=== PATIENT | female | born 1965 ===

== ENCOUNTER 2016-10-27 11:32 | Day surgery (SDC) | payer OTHER ==
--- NOTE | ~2016-10-27 | EGD ---
EGD REPORT [facility] [address] [place] [place] [address] NAME: HAILEY KRUEGER : 61 STATUS : REG [facility]#: [id number] AGE: 51 ADM/REG DATE : 10/27/16 MR#: [id number] REPORT SERV DATE: 10/27/16 DICTATED BY: FAITH BHAT DATE: 10/27/16 REPORT STATUS : Draft TRANSCRIBED BY: [employer] DATE: 10/27/16 [facility] Patient Name: Hailey Krueger Date of : 1965 Attending MD: FAITH BHAT MD Procedure Date No Time: 10/27/2016 Procedure: Upper GI endoscopy Indications: Epigastric abdominal pain, Dysphagia, Heartburn, Nausea Referring MD: Kaushal Krueger MD Medicines: Monitored Anesthesia Care Complications: No immediate complications. Procedure: Pre-Anesthesia Assessment: - ASA Grade Assessment: II - A patient with mild systemic disease. After obtaining informed consent, the endoscope was passed under direct vision. Throughout the procedure, the patient's blood pressure, pulse, and oxygen saturations were monitored continuously. The GIF [id number] was introduced through the mouth, and advanced to the second part of duodenum. The upper GI endoscopy was accomplished without difficulty. The patient tolerated the procedure well. Findings: The lower third of the esophagus was normal. Biopsies were taken with a cold forceps for histology. No endoscopic abnormality was evident in the esophagus to explain the patient's complaint of dysphagia. A medium amount of food (residue) was found in the gastric body. Patchy moderate inflammation characterized by erythema and linear erosions was found in the gastric antrum. Biopsies were taken with a cold forceps for histology. The cardia and gastric fundus were normal on retroflexion. The duodenal bulb and 2nd part of the duodenum were normal. Biopsies were taken with a cold forceps for histology. Impression: - Normal lower third of esophagus. Biopsied. - No endoscopic esophageal abnormality to explain patient's dysphagia. - A medium amount of food (residue) in the stomach. - Gastritis. Biopsied. - Normal duodenal bulb and 2nd part of the duodenum. Biopsied. Recommendation: - Follow an antireflux regimen. EGD REPORT [address] [address] NAME: HAILEY KRUEGER : 61 STATUS : REG [facility] PAT#: [id number] AGE: 51 ADM/REG DATE : 10/27/16 MR#: [id number] REPORT SERV DATE: 10/27/16 DICTATED BY: FAITH BHAT DATE: 10/27/16 REPORT STATUS : Draft TRANSCRIBED BY: [employer] DATE: 10/27/16 - Use Prilosec (omeprazole) 40 mg PO daily. - Continue present medications. - Patient has a contact number available for emergencies. The signs and symptoms of potential delayed complications were discussed with the patient. Return to normal activities tomorrow. Written discharge instructions were provided to the patient. - Low residue diet. - Do a gastric emptying study. - Perform a RUQ ultrasound. - Check amylase, lipase, liver enzymes (AST, ALT, alkaline phosphatase, bilirubin), hemogram with white blood cell count and platelets and electrolyte panel today. Procedure Code(s): --- Professional --- 69753, Esophagogastroduodenoscopy, flexible, transoral; with biopsy, single or multiple Diagnosis Code(s): --- Professional --- R13.10, Dysphagia, unspecified K29.70, Gastritis, unspecified, without bleeding R10.13, Epigastric pain R12, Heartburn R11.0, Nausea CPT copyright 2013 [employer]. All rights reserved. The codes documented in this report are preliminary and upon youth teacher review may be revised to meet current compliance requirements. FAITH BHAT MD 10/27/2016 1:49 PM This report has been signed electronically. Number of Addenda: 0 Note Initiated On: 10/27/2016 1:03 PM Scope Withdrawal Time 0 hours 0 minutes 0 seconds [id number] [place] [id number]
[2016-10-27 14:28] LABS: BASOPHILS 0.1 %; BASOPHILS ABSOLUTE 0.01 10/3/uL (0.0-0.16); EOSINOPHILS 1.3 %; HEMATOCRIT 38.2 % (36.0-48.0); IMMATURE GRANULOCYTES 0.1 %; IMMATURE GRANULOCYTES ABSOLUTE 0.01 10/3/uL (0.0-0.11); LYMPHOCYTES ABSOLUTE 0.71 10/3/uL (0.67-4.30); MANUAL DIFF NO %; MEAN CORPUSCULAR HEMOGLOB 31.6 pg (26.0-34.0); MEAN CORPUSCULAR VOLUME 92.7 fL (80-100); MEAN PLATELET VOLUME 8.9 fL (9.2-13.0); MONOCYTES 1.5 %; MONOCYTES ABSOLUTE 0.12 10/3/uL (0.21-1.20); NEUTROPHILS ABSOLUTE 6.96 10/3/uL (2.02-8.40); PLATELET COUNT 214 10/3/uL (150-400); RBC DISTRIBUTION WIDTH 12.9 % (12.0-16.0); RED CELL COUNT 4.12 10/6/uL (4.0-5.6); WHITE BLOOD CELLS 7.9 10/3/uL (4.5-10.5)
[2016-10-27 14:46] LABS: ALBUMIN 3.5 G/DL (3.5-5.0); ALKALINE PHOSPHATASE 46 U/L (45-117); BUN (BLOOD UREA NITROGEN) 14 MG/DL (6-23); CALCIUM, SERUM 8.2 MG/DL (8.5-10.4); CHLORIDE, SERUM 108 MMOL/L (96-112); CO2 (CARBON DIOXIDE) 29 MMOL/L (24-34); CREATININE 0.72 MG/DL (0.55-1.02); DIRECT BILIRUBIN 0.1 MG/DL (0.0-0.4); GFR AFRICAN AMERICAN 111 ML/MIN (>=60); GFR NON AFRICAN AMERICAN 96 ML/MIN (>=60); GLUCOSE, SERUM 89 MG/DL (60-99); INDIRECT BILIRUBIN(NOT ORDER) 0.7 MG/DL (0.1-0.9); POTASSIUM, SERUM 4.3 MMOL/L (3.5-5.3); SGOT(AST) 16 U/L (5-40); SGPT(ALT) 21 U/L (5-65); SODIUM, SERUM 143 MMOL/L (135-148); TOTAL BILIRUBIN 0.8 MG/DL (0-1.2); TOTAL PROTEIN 6.4 G/DL (6.0-8.5)
== END 2016-10-27 23:59 | disposition home or self-care (01) ==
LOC: DMU 11:32
PROVIDERS: Internal Medicine Gastroenterology
PROC: 0DB58ZX Excision of Esophagus, Via Natural or Artificial Opening Endoscopic, Diagnostic (ICD-10-PCS; 2016-10-27)
PROC: 0DB78ZX Excision of Stomach, Pylorus, Via Natural or Artificial Opening Endoscopic, Diagnostic (ICD-10-PCS; 2016-10-27)
PROC: 0DB68ZX Excision of Stomach, Via Natural or Artificial Opening Endoscopic, Diagnostic (ICD-10-PCS; principal; 2016-10-27 13:30)
DX: K29.70 Gastritis, unspecified, without bleeding (principal); K22.8 Other specified diseases of esophagus
CPT/HCPCS: 80048; 80076; 82150; 83690; 84703; 85025; 88305; J2405

== ENCOUNTER 2016-10-29 06:17 | Emergency (ER) | payer OTHER ==
[2016-10-29 06:07] LABS: BASOPHILS 0.2 %; BASOPHILS ABSOLUTE 0.01 10/3/uL (0.0-0.16); EOSINOPHILS 1.7 %; EOSINOPHILS ABSOLUTE 0.11 10/3/uL (0.0-0.53); ER CBC TAT 0 Hrs 05 Mins; HEMATOCRIT 41.9 % (36.0-48.0); HEMOGLOBIN 14.1 g/dL (12.0-16.0); IMMATURE GRANULOCYTES 0.2 %; IMMATURE GRANULOCYTES ABSOLUTE 0.01 10/3/uL (0.0-0.11); LYMPHOCYTES 10.1 %; LYMPHOCYTES ABSOLUTE 0.65 10/3/uL (0.67-4.30); MANUAL DIFF NO %; MEAN CORPUS HGB CONC 33.7 g/dL (32.0-36.0); MEAN CORPUSCULAR HEMOGLOB 31.5 pg (26.0-34.0); MEAN CORPUSCULAR VOLUME 93.7 fL (80-100); MEAN PLATELET VOLUME 9.1 fL (9.2-13.0); MONOCYTES ABSOLUTE 0.26 10/3/uL (0.21-1.20); NEUTROPHILS 83.8 %; NEUTROPHILS ABSOLUTE 5.41 10/3/uL (2.02-8.40); PLATELET COUNT 246 10/3/uL (150-400); RBC DISTRIBUTION WIDTH 12.4 % (12.0-16.0); RED CELL COUNT 4.47 10/6/uL (4.0-5.6); WHITE BLOOD CELLS 6.5 10/3/uL (4.5-10.5)
[2016-10-29 06:25] LABS: A/G RATIO 1.1 (0.7-1.9); ALBUMIN 3.7 G/DL (3.5-5.0); ALKALINE PHOSPHATASE 50 U/L (45-117); BUN (BLOOD UREA NITROGEN) 13 MG/DL (6-23); CALCIUM, SERUM 8.7 MG/DL (8.5-10.4); CHLORIDE, SERUM 106 MMOL/L (96-112); CO2 (CARBON DIOXIDE) 29 MMOL/L (24-34); GFR AFRICAN AMERICAN 115 ML/MIN (>=60); GFR NON AFRICAN AMERICAN 99 ML/MIN (>=60); GLOBULIN 3.3 G/DL (2.5-4.1); GLUCOSE, SERUM 110 MG/DL (60-99); POTASSIUM, SERUM 4.1 MMOL/L (3.5-5.3); SGOT(AST) 24 U/L (5-40); SGPT(ALT) 24 U/L (5-65); SODIUM, SERUM 138 MMOL/L (135-148); TOTAL BILIRUBIN 0.7 MG/DL (0-1.2)
[2016-10-29 07:09] LABS: ASCORBIC ACID (UR NOT ORDER) NEG (NEG); BILIRUBIN, URINE NEGATIVE (NEG); ER URINALYSIS TAT 0 Hrs 00 Mins; KETONE, URINE NEGATIVE (NEG); LEUKOCYTE ESTERASE(NOT OR NEG (NEG); NITRITE (URINE) NEG (NEG); WBC (NOT ORDERED) (RFLEX) 1 (0-5)
[2016-10-29 07:31] LABS: TROPONIN I <0.02 NG/ML (<0.05)
== END 2016-10-29 08:41 | disposition home or self-care (01) ==
LOC: ER 06:17
PROVIDERS: Emergency Medicine
DX: K52.9 Noninfective gastroenteritis and colitis, unspecified (principal)
CPT/HCPCS: 74176; 76705; 80053; 81001; 83690; 84484; 85025; 93005; 96374; 96375; 99285; J2405; J2550